=== PATIENT | female | born 1995 | race Caucasian/White ===

== ENCOUNTER 2018-09-18 19:26 | Inpatient (IN) | payer BC, OTHER ==
[~2018-09-18] VITALS: Ht 152.4 cm; Wt 52.2 kg
[~2018-09-18 19:26] MED LIST: FLONASE 0.05%50 MCG NASAL; IBUPROFEN 600600 M1 PO; NOHOMEMEDICATIONS; NORCO 5-325 TA1 EACH PO; VICODIN 5-5001 EACH PO
[2018-09-18 19:28] VITALS: BP 98/64
[2018-09-18 19:56] LABS: URINE BILIRUBIN NEGATIVE (Negative); URINE BLOOD TRACE (Negative); URINE CLARITY SL CLOUDY; URINE COLOR YELLOW; URINE GLUCOSE-RANDOM* NEGATIVE (Negative); URINE KETONES TRACE (Negative); URINE NITRITE-REFLEX NEGATIVE (Negative); URINE PROTEIN (DIPSTICK) 1+ (Negative); URINE SPECIFIC GRAVITY >= 1.030 (1.005-1.035); URINE UROBILINOGEN 0.2 E.U./dl (0.2-1.0)
[2018-09-18 19:59] LABS: HEMATOCRIT 43.9 % (37.0-47.0); MCH 31.6 pg (26.0-34.0); MCHC 34.1 g/dL (28.0-37.0); MCV 92.6 fL (80.0-100.0); PLATELET COUNT 319 thou/uL (150-400); RBC 4.74 mil/uL (4.20-5.00); RDW 13.5 % (10.5-14.5)
[2018-09-18 19:59] LABS: URINE LEUKOCYTES-REFLEX 1+ (Negative)
[2018-09-18 20:08] LABS: CALCIUM 9.6 mg/dL (8.5-10.1); CREATININE 1.3 mg/dL (0.6-1.0); POTASSIUM 4.5 mmol/L (3.5-5.1)
[2018-09-18 20:12] LABS: WBC 43.8 thou/uL (4.0-11.0)
[2018-09-18 20:14] LABS: ALBUMIN 3.8 g/dL (3.4-5.0); TOTAL BILIRUBIN 0.6 mg/dL (<0.1-1.0); TOTAL PROTEIN 8.4 g/dL (6.4-8.2)
[2018-09-18 20:26] LABS: CASTS None Seen /LPF (None Seen); CRYSTALS None Seen /LPF (None Seen); SQUAMOUS 4-10 Moderate /LPF (0-3); URINE WBC-REFLEX 6-15 Few /HPF (0-5)
[2018-09-18 20:27] LABS: BACTERIA-REFLEX 1-9 Few /HPF (None Seen); URINE RBC 0-2 Rare /HPF (0-2)
[2018-09-18 20:38] LABS: ABSOLUTE NEUTROPHILS 40.3 thou/uL (1.4-8.2); METAMYELOCYTES 1 %
[2018-09-18 20:40] LABS: PLATELET ESTIMATE NORMAL; POLYCHROMASIA 1+
--- NOTE | 2018-09-18 21:27 | NUR ---
CRITICAL LAB, WBC=43.8 NOTIFIED PHYSICIAN AT 2000
[2018-09-19 00:31] VITALS: BP 100/58
[2018-09-19 01:20] VITALS: BP 106/58
[2018-09-19 02:01] VITALS: BP 108/55
[2018-09-19 04:54] VITALS: BP 96/67
--- NOTE | 2018-09-19 05:15 | NUR ---
ASSESSMENT: PT ARRIVED TO THE UNIT AT APPROXIMATELY 0130 FROM ED, ACCOMPANIED BY SPOUSE. PT IS ALERT AND ORIENT TIMES FOUR. UP AD KENNA TO BR. PLACED IN CONTACT ISOLATION TO R/O C-DIFF. PT C/O ABDOMENAL PAIN, PRN MORPHINE GIVEN WITH PARTIAL RELIEF. NO OTHER ISSUED STATED. PT DID GO TO SLEEP., PT NPO FOR NOW. CONSULT FOR DR. Jacobo FOR ROUTINE VISIT. WBC 43.8. PT STATE THAT SHE WAS TAKING ANTIBIOTICS AT HOME PRIOR TO ADMISSION FOR AN ABCESSED TOOTH. VSS, AFEBRILE. SLOW PROGRESS TOWARDS DC GOALS, WILL CONTINUE TO MONITOR.
[2018-09-19 07:13] LABS: HEMATOCRIT 37.1 % (37.0-47.0); MCH 30.8 pg (26.0-34.0); MCV 93.4 fL (80.0-100.0); RBC 3.97 mil/uL (4.20-5.00); RDW 13.2 % (10.5-14.5)
[2018-09-19 07:16] LABS: HEMOGLOBIN 12.2 gm/dL (12.0-15.0); WBC 23.4 thou/uL (4.0-11.0)
[2018-09-19 07:26] LABS: CALCIUM 8.7 mg/dL (8.5-10.1); CREATININE 0.6 mg/dL (0.6-1.0); POTASSIUM 4.1 mmol/L (3.5-5.1)
[2018-09-19 08:10] VITALS: BP 103/60
--- NOTE | 2018-09-19 08:31 | NUR ---
CM RECEIVED REPORT FROM BEDSIDE, PT HERE WITH ABD PAIN, DIARRHEA, CURRENTLY NPO. SPOKE WITH BEDSIDE NO ANTICIPATED NEEDS. WILL CONT FOLLOWING NEEDED FOR DCP IF NEEDED.
[2018-09-19 15:02] VITALS: BP 95/58
--- NOTE | 2018-09-19 16:40 | NUR ---
A/OX4, PAIN MANAGED WITH MEDICATIONS, SEEN BY DR MACIAS TO DAY AND DR FALLON, TOLERATED REGULAR DIET AT LUNCH. PT SNACKING DONUTS AND DORITOS AND SODA THIS AFTERNOON. PT MOANS THAT HER ABD HURTS AND FINDS RELIEF WITH PAIN MEDICATION. PT UP AT KENNA, DENIES BM TODAY. POSSIBLE DC TOMORROW MORNING. CALL LIGHT IN REACH.
--- NOTE | 2018-09-19 18:58 | NUR ---
PATIENT LEFT [facility], DR FALLON NOTIFIED. ESCORTED OUT BY SECURITY.
== END 2018-09-19 19:00 | disposition left against medical advice (07) | DRG 392 ==
LOC: ER 19:26 → EROBS 23:36 → 4W 23:36
PROVIDERS: Emergency Medicine; Nurse Practitioner Family; ADMIT Hospitalist
DX: K52.9 Noninfective gastroenteritis and colitis, unspecified (principal); F17.210 Nicotine dependence, cigarettes, uncomplicated; J45.909 Unspecified asthma, uncomplicated; Z53.21 Procedure and treatment not carried out due to patient leaving prior to being seen by health care provider

== ENCOUNTER 2021-09-23 17:33 | Observation (INO) | payer OTHER ==
[~2021-09-23] VITALS: Ht 152.4 cm; Wt 59.4 kg
[2021-09-23 17:34] VITALS: BP 113/70
[2021-09-23 17:53] LABS: URINE BILIRUBIN NEGATIVE (Negative); URINE BLOOD TRACE (Negative); URINE COLOR YELLOW; URINE GLUCOSE-RANDOM* NEGATIVE (Negative); URINE KETONES 2+ (Negative); URINE NITRITE-REFLEX NEGATIVE (Negative); URINE PROTEIN (DIPSTICK) TRACE (Negative); URINE SPECIFIC GRAVITY 1.025 (1.005-1.035); URINE UROBILINOGEN 0.2 E.U./dl (0.2-1.0)
[2021-09-23 18:00] LABS: URINE LEUKOCYTES-REFLEX 2+ (Negative)
[2021-09-23 18:01] LABS: URINE CLARITY HAZY
[2021-09-23 18:03] LABS: ABSOLUTE NEUTROPHILS 14.2 thou/uL (1.4-8.2); BASOPHILS 0.5 % (0.0-2.0); EOSINOPHILS 0.1 % (0.0-3.0); HEMATOCRIT 37.7 % (37.0-47.0); HEMOGLOBIN 13.2 gm/dL (12.0-15.0); LYMPHOCYTES 7.5 % (24.0-44.0); MCH 30.9 pg (26.0-34.0); MCHC 35.1 g/dL (28.0-37.0); MONOCYTES 6.1 % (1.0-8.0); PLATELET COUNT 268 thou/uL (150-400); POLYS 85.8 % (36.0-66.0); RBC 4.28 mil/uL (4.20-5.00); RDW 12.7 % (10.5-14.5); WBC 16.6 thou/uL (4.0-11.0)
[2021-09-23 18:08] LABS: SQUAMOUS >10 Many /LPF (0-3); URINE RBC 3-10 Few /HPF (NONE SEEN); URINE WBC-REFLEX >25 Many /HPF (0-5)
[2021-09-23 18:09] LABS: BACTERIA-REFLEX >30 Many /HPF (None Seen); CASTS None Seen /LPF (None Seen); CRYSTALS None Seen /LPF (None Seen)
[2021-09-23 18:12] LABS: CALCIUM 9.7 mg/dL (8.5-10.1); CREATININE 0.6 mg/dL (0.6-1.0); POTASSIUM 3.1 mmol/L (3.5-5.1)
[2021-09-23 18:18] LABS: ALBUMIN 3.5 g/dL (3.4-5.0); TOTAL BILIRUBIN 0.6 mg/dL (0.2-1.0); TOTAL PROTEIN 7.7 g/dL (6.4-8.2)
[2021-09-23 22:57] VITALS: BP 102/55
--- NOTE | 2021-09-23 23:00 | NUR ---
Pt. admitted to the unit from the emergency room accompanied by staff. Admission assessment and history is completed. She c/o back pain and was wanting some Tylenol pm for her pain and to help her sleep. Jennifer GORDON notified and orders received for benadryl (see cpoe). Tylenol already ordered. Up ad chepe to the bathroom.
--- NOTE | 2021-09-24 03:49 | NUR ---
Pt. rested quietly during the night and po tylenol did help with her back pain. Voiding per toilet without difficulty.
[2021-09-24 07:23] VITALS: BP 97/59
[2021-09-24 09:46] LABS: HEMATOCRIT 32.2 % (37.0-47.0); MCH 31.1 pg (26.0-34.0); MCHC 34.7 g/dL (28.0-37.0); MCV 89.8 fL (80.0-100.0); RBC 3.59 mil/uL (4.20-5.00); RDW 12.6 % (10.5-14.5); WBC 8.9 thou/uL (4.0-11.0)
[2021-09-24 09:58] LABS: HEMOGLOBIN 11.2 gm/dL (12.0-15.0)
[2021-09-24 10:10] LABS: CALCIUM 8.3 mg/dL (8.5-10.1); CREATININE 0.6 mg/dL (0.6-1.0); MAGNESIUM 1.6 mg/dL (1.8-2.4); POTASSIUM 3.3 mmol/L (3.5-5.1)
--- NOTE | 2021-09-24 15:14 | NUR ---
PT WILL BE NPO AFTER MIDNIGHT FOR ABD U/S IN THE AM. PT DENIES PAIN OR SOA AND UP TO BATHROOM. WILL CONTINUE TO ASSESS.
[2021-09-24 19:35] VITALS: BP 99/62
--- NOTE | 2021-09-25 04:44 | NUR ---
PROGRESS PT A/O X4. UP AD KENNA GAIT STEADY, DENIES PAIN AT THIS TIME BUT REQUESTED TYLENOL PM ORDER OBTAINED FOR ONE TIME DOSE OF BENEDRYL AND THAT WAS GIVEN WITH PRN TYLENOL WITH EFFECT PT SLEPT ALL NOC. UP AD KENNA TO BATHROOM VOIDING QS. NPO AT MIDNIGHT PENDING ABDOMINAL US IN AM. VSS CONTINUE POC.
[2021-09-25 06:18] LABS: HEMATOCRIT 32.4 % (37.0-47.0); HEMOGLOBIN 11.2 gm/dL (12.0-15.0); MCH 31.3 pg (26.0-34.0); MCHC 34.6 g/dL (28.0-37.0); MCV 90.5 fL (80.0-100.0); RBC 3.58 mil/uL (4.20-5.00); RDW 12.7 % (10.5-14.5); WBC 6.7 thou/uL (4.0-11.0)
[2021-09-25 06:29] LABS: CALCIUM 8.6 mg/dL (8.5-10.1); CREATININE 0.4 mg/dL (0.6-1.0); MAGNESIUM 1.8 mg/dL (1.8-2.4); POTASSIUM 3.5 mmol/L (3.5-5.1)
--- NOTE | 2021-09-25 07:48 | NUR ---
WALKED IN PTS ROOM THIS AM PT STATES "IM LEAVING" PT INFORMED OF RISKS INVOLVED IN LEAVING, GIVEN AMA FORM. PT SIGNED AMA FORM STATED HER SIGNIFICANT OTHER WAS ON HIS WAY. PROVIDER AND CULTURIST NOTIFIED.
== END 2021-09-25 07:50 | disposition left against medical advice (07) ==
LOC: ER 17:33 → EROBS 21:03 → ER 21:10 → EROBS 21:10 → 4W 22:37
PROVIDERS: Internal Medicine; Physician Assistant; ADMIT Pediatrics; ATTEND Pediatrics
DX: O98.811 Other maternal infectious and parasitic diseases complicating pregnancy, first trimester (principal); A41.9 Sepsis, unspecified organism; N39.0 Urinary tract infection, site not specified; O23.41 Unspecified infection of urinary tract in pregnancy, first trimester; O99.281 Endocrine, nutritional and metabolic diseases complicating pregnancy, first trimester; E86.0 Dehydration; E87.1 Hypo-osmolality and hyponatremia; E83.42 Hypomagnesemia; O99.511 Diseases of the respiratory system complicating pregnancy, first trimester; J45.909 Unspecified asthma, uncomplicated; R10.2 Pelvic and perineal pain; O26.891 Other specified pregnancy related conditions, first trimester; O99.331 Smoking (tobacco) complicating pregnancy, first trimester; Z20.822 Contact with and (suspected) exposure to COVID-19; Z71.6 Tobacco abuse counseling; Z3A.13 13 weeks gestation of pregnancy